=== PATIENT | female | born 1995 | race American Indian/Alaskan Native ===

== ENCOUNTER 2017-11-17 13:33 | Emergency (ER) | payer MEDICAID ==
[2017-11-17 14:20] VITALS: BP 146/95
[2017-11-17 16:25] LABS: Bilirubin,Urine NEG (Negative); Blood,Urine NEG (Negative); Color,Urine Yellow (Yellow); Mucus,Urine 3+ /HPF
[2017-11-17 16:27] LABS: HCG Qualitative,Urine Negative (Negative)
--- NOTE | 2017-11-17 18:50 | Emergency Department Report ---
ED Female HPI - General Chief complaint: Urogenital-Female Stated complaint: VAG BLEEDING Time Seen by Provider: 11/17/17 18:11 Source: patient Mode of arrival: Ambulatory Limitations: No Limitations - History of Present Illness Initial comments: This is a 22-year-old female nontoxic, well nourished in appearance, no acute signs of distress presents to the ED with c/o of vaginal discharge, vaginal bleeding, and pelvic cramping x2 days. Patient stated that symptoms of pelvic cramping and vaginal bleeding is similar to menstrual cycle. Patient stated she is breast feeding so she is "not supposed to get period". Patient stated she is concerned about STD. Patient denies any radiation of pain. Patient denies any vaginal ulcers or lesions. Patient denies any nausea, vomiting, chest pain, shortness of breathe, fever, chills, headache, back pain, numbness, tingling, stiff neck. Patient denies any urinary symptoms. Patient denies any allergies or PMH. MD Complaint: vaginal bleeding, vaginal discharge, pelvic pain -: days(s) (2) Radiation: non-radiating Severity: mild Severity scale (0 -10): 3 Quality: cramping Improves with: none Worsens with: none Are you Now?: No Associated Symptoms: vaginal discharge, vaginal bleeding, abdominal pain ( pelvic pain). denies: nausea/vomiting, fever/chills, headaches, loss of appetite, dysuria, hematuria, rash, seizure, shortness of breath, syncope, weakness - Related Data Allergies Allergy/AdvReac Type Severity Reaction Status Date / Time No Known Allergies Allergy Unverified 11/17/17 14:20 ED Review of Systems ROS: Stated complaint: VAG BLEEDING Other details as noted in HPI Constitutional: denies: chills, fever Eyes: denies: eye pain, eye discharge, vision change ENT: denies: ear pain, throat pain Respiratory: denies: cough, shortness of breath, wheezing Cardiovascular: denies: chest pain, palpitations Endocrine: no symptoms reported Gastrointestinal: abdominal pain. denies: nausea, vomiting, diarrhea Genitourinary: discharge, abnormal menses. denies: urgency, dysuria, frequency , hematuria Musculoskeletal: denies: back pain, joint swelling, arthralgia Skin: denies: rash, lesions Neurological: denies: headache, weakness, paresthesias Psychiatric: denies: anxiety, depression Hematological/Lymphatic: denies: easy bleeding, easy bruising ED Past Medical Hx - Past Medical History Previous Medical History?: No - Surgical History Past Surgical History?: No - Social History Smoking Status: Current Every Day Smoker Substance Use Type: None ED Physical Exam - General Limitations: No Limitations General appearance: alert, in no apparent distress - Head Head exam: Present: atraumatic, normocephalic - Eye Eye exam: Present: normal appearance, PERRL, EOMI Pupils: Present: normal accommodation - ENT ENT exam: Present: normal exam, mucous membranes moist - Neck Neck exam: Present: normal inspection, full ROM. Absent: tenderness, meningismus, lymphadenopathy - Respiratory Respiratory exam: Present: normal lung sounds bilaterally. Absent: respiratory distress, wheezes, rales, rhonchi, stridor, chest wall tenderness, accessory muscle use, decreased breath sounds, prolonged expiratory - Cardiovascular Cardiovascular Exam: Present: regular rate, normal rhythm, normal heart sounds. Absent: bradycardia, tachycardia, irregular rhythm, systolic murmur, diastolic murmur, rubs, gallop - GI/Abdominal GI/Abdominal exam: Present: soft, tenderness (pelvic region), normal bowel sounds. Absent: distended, guarding, rebound, rigid, diminished bowel sounds - Expanded GI/Abdominal Exam Expanded GI/Abdominal exam: Absent: psoas sign, obturator sign, heel tap sign, Thayer's sign, Rovsing's sign, tenderness at [place]bur[place]'s Point, ascites - Rectal Rectal exam: Present: deferred - External exam: Present: normal external exam, other (furnace attendant Patty oncology coordinator present during exam). Absent: erythema, swelling, lesions, lacerations, ecchymosis, bleeding Speculum exam: Present: normal speculum exam, cervical discharge, vaginal bleeding (slight), other (furnace attendant Patty oncology coordinator present during exam). Absent: erythema, vaginal discharge, foreign body, tissue, laceration Bi-manual exam: Present: normal bi-manual exam, other (furnace attendant Patty oncology coordinator present during exam). Absent: cervical motion tendernes, adnexal tenderness, adnexal mass, uterine enlargement, uterine tenderness - Extremities Exam Extremities exam: Present: normal inspection, full ROM, normal capillary refill - Back Exam Back exam: Present: normal inspection, full ROM. Absent: tenderness, CVA tenderness (R), CVA tenderness (L), muscle spasm, paraspinal tenderness, rash noted - Neurological Exam Neurological exam: Present: alert, oriented X3, normal gait - Psychiatric Psychiatric exam: Present: normal affect, normal mood - Skin Skin exam: Present: warm, dry, intact, normal color. Absent: rash ED Course Vital Signs 11/17/17 14:17 Temperature 98 F Pulse Rate 88 Respiratory 20 Rate Blood Pressure 146/95 O2 Sat by Pulse 100 Oximetry - Reevaluation(s) Reevaluation #1: 11/17/17 18:55 Patient is speaking in full sentences with no signs of distress noted. ED Medical Decision Making - Lab Data Result diagrams: 11/17/17 19:05 11/17/17 19:05 - Medical Decision Making This is a 22-year-old female that presents with possible STD. Patient is stable was examined by me. Labs within normal limits. US obtained and within normal limits. Patient is notified of the US report with no questions noted. UA obtained. Wet prep obtained. Gonorrhea chlamydia swab pending. Patient was instructed to return in 2 days for GC results. Patient wanted empirical treatment so patient received 1 g Rocephin and 1 g of azithromycin by mouth. Patient was instructed to Follow-up with a primary care doctor in 3-5 days or if symptoms worsen and continue return to emergency room as soon as possible. At time of discharge, the patient does not seem toxic or ill in appearance. No acute signs of distress noted. Patient agrees to discharge treatment plan of care. No further questions noted by the patient. Critical care attestation.: If time is entered above; I have spent that time in minutes in the direct care of this critically ill patient, excluding procedure time. ED Disposition Clinical Impression: Vaginal discharge, Vaginal bleeding, Possible exposure to STD Disposition: DC-01 TO HOME OR SELFCARE Is pt being admited?: No Does the pt Need Aspirin: No Condition: Stable Instructions: Safe Sex (ED) Additional Instructions: Follow-up with a primary care doctor in 3-5 days or if symptoms worsen and continue return to emergency room as soon as possible. Referrals: PRIMARY CARE, [Primary Care Provider] - 3-5 Days ABBY VERDE MD [Staff Physician] - 3-5 Days [facility] [Outside] - 3-5 Days [facility] [Outside] - 3-5 Days Forms: Work/School Release Form(ED)
[2017-11-17 19:19] LABS: Basophils # (Auto) 0.1 K/mm3 (0.0-0.1); Eosinophils # (Auto) 0.1 K/mm3 (0.0-0.4); Eosinophils % (Auto) 1.5 % (0.0-4.3); Hematocrit 36.7 % (30.3-42.9); Hemoglobin 11.7 gm/dl (10.1-14.3); Lymphocytes # (Auto) 2.6 K/mm3 (1.2-5.4); Lymphocytes % (Auto) 50.1 % (13.4-35.0); Mean Corpuscular HGB Conc 32 % (30-34); Mean Corpuscular Hemoglobin 27 pg (28-32); Mean Corpuscular Volume 83 fl (79-97); Monocytes # (Auto) 0.3 K/mm3 (0.0-0.8); Monocytes % (Auto) 6.4 % (0.0-7.3); Platelet Count 187 K/mm3 (140-440); Red Blood Count 4.43 M/mm3 (3.65-5.03); Red Cell Distribution Width 16.7 % (13.2-15.2)
[2017-11-17 19:31] LABS: BUN/Creatinine Ratio 18; Blood Urea Nitrogen 11 mg/dL (7-17); Calcium 9.3 mg/dL (8.4-10.2); Hemolysis Index 1
[2017-11-17] MEDS ORDERED: K-DUR PO ONE (20:06)
--- NOTE | 2017-11-17 20:59 | Ultrasound Report ---
FINAL REPORT EXAM: US PELVIC COMPLETE HISTORY: vaginal bleeding . LMP 11/09/2017. Negative beta HCG level TECHNIQUE: Ultrasound of the pelvis using transabdominal and transvaginal imaging PRIORS: None. FINDINGS: Uterus: Uterus is normal in size and normal and homogeneous in echogenicity without focal fibroid formation. The uterus measures 6.8 x 3.8 x 4.1 cm in size. Endometrial stripe: Normal and uniform in thickness measuring 6.9 mm. There is a small amount of fluid in the endometrial canal containing floating echogenic debris, likely due to blood products. Ovaries: Both ovaries appear normal in size and echogenicity with normal blood flow bilaterally. The right ovary measures 2.9 x 2.1 x 2.2 cm and the left ovary measures 1.9 x 1.5 x 2.9 cm in size. Other: There is no evidence for solid adnexal mass or free fluid in the cul-de-sac seen. IMPRESSION: Essentially negative pelvic ultrasound. Small amount of fluid containing echogenic debris is present in the endometrial canal, likely due to blood products. DOS
[2017-11-17] MEDS ORDERED: XYLOCAINE 1% MPF 5 mL INFILTRATI ONE (21:34)
[2017-11-17] MEDS ORDERED: ROCEPHIN IM ONE (21:34)
[2017-11-17] MEDS ORDERED: ZITHROMAX PO ONE (21:34)
== END 2017-11-17 22:19 | disposition home or self-care (01) ==
LOC: ED 13:33
DX: N89.8 Other specified noninflammatory disorders of vagina (principal); F17.200 Nicotine dependence, unspecified, uncomplicated
CPT/HCPCS: 36415; 76830; 76856; 80048; 81001; 81025; 85025; 87210; 87591; 96372; 99284; J0696

== ENCOUNTER 2018-10-25 16:17 | Emergency (ER) | payer MEDICAID, OTHER ==
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
[2018-10-25 18:03] LABS: Bilirubin,Urine NEG (Negative); Blood,Urine NEG (Negative); Color,Urine Yellow (Yellow); Protein,Urine <15 mg/dL mg/dL (Negative); Urobilinogen,Urine < 2.0 mg/dL (<2.0); WBC,Urine < 1.0 /HPF (0.0-6.0)
[2018-10-25 18:12] LABS: HCG Qualitative,Urine Negative (Negative)
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
--- NOTE | 2018-10-25 19:44 | Ultrasound Report ---
PROCEDURE: US TRANSVAGINAL HISTORY: pelvic pain FINDINGS: Real-time ultrasound of the pelvis was performed by transabdominal and endovaginal techniqu e. The uterus measures 8.7 x 3.8 x 4.1 cm. The endometrial stripe measures 1.2 cm which is within normal limits. The right ovary measures 3.1 x 2.0 x 2.8 cm and the left ovary 4.0 x 1.8 x 2.2 cm. There is no adnexa l mass or evidence of ovarian torsion. There is physiologic-simple appearing free fluid in the cul-de -sac. IMPRESSION: The uterus and ovaries appear within normal limits This document is electronically signed by Jossue Nguyen MD., Oct 25 2018 07:42:54 PM ET
--- NOTE | 2018-10-25 19:44 | Ultrasound Report ---
PROCEDURE: US PELVIC COMPLETE TECHNIQUE: HISTORY: pelvic pain COMPARISONS: FINDINGS: Real-time ultrasound of the pelvis was performed by transabdominal and endovaginal techniqu e. The uterus measures 8.7 x 3.8 x 4.1 cm. The endometrial stripe measures 1.2 cm which is within normal limits. The right ovary measures 3.1 x 2.0 x 2.8 cm and the left ovary 4.0 x 1.8 x 2.2 cm. There is no adnexa l mass or evidence of ovarian torsion. There is physiologic-simple appearing free fluid in the cul-de -sac. IMPRESSION: The uterus and ovaries appear within normal limits This document is electronically signed by Jossue Nguyen MD., Oct 25 2018 07:43:12 PM ET
[2018-10-25 20:38] VITALS: BP 123/81
== END 2018-10-25 20:38 | disposition home or self-care (01) ==
LOC: ED 16:17
DX: S39.013A Strain of muscle, fascia and tendon of pelvis, initial encounter (principal); S39.012A Strain of muscle, fascia and tendon of lower back, initial encounter; F17.200 Nicotine dependence, unspecified, uncomplicated; V89.2XXA Person injured in unspecified motor-vehicle accident, traffic, initial encounter; Y93.89 Activity, other specified; Y92.488 Other paved roadways as the place of occurrence of the external cause; Y99.8 Other external cause status
CPT/HCPCS: 76830; 76856; 81001; 81025; 99284

== ENCOUNTER 2018-12-13 11:36 | Emergency (ER) | payer MEDICAID ==
[2018-12-13 11:52] VITALS: BP 123/71
--- NOTE | 2018-12-13 11:52 | Event Note ---
ED Screening Note Date of service: 12/13/18 Time: 11:50 ED Screening Note: 23 y/o female comes in for allergies like symptoms for 2 days. No fever. Has not taken anything for it. This initial assessment/diagnostic orders/clinical plan/treatment(s) is/are subject to change based on patients health status, clinical progression and re- assessment by fellow clinical providers in the ED. Further treatment and workup at subsequent clinical providers discretion. Patient/guardian urged not to elope from the ED as their condition may be serious if not clinically assessed and managed. Initial orders include:
== END 2018-12-13 13:52 | disposition left against medical advice (07) ==
LOC: ED 11:36
DX: R05 Cough (principal); Z53.21 Procedure and treatment not carried out due to patient leaving prior to being seen by health care provider

== ENCOUNTER 2019-01-13 09:18 | Emergency (ER) | payer MEDICAID ==
[2019-01-13 09:39] VITALS: BP 112/62
[2019-01-13] MEDS ORDERED: REGLAN IV ONE (09:55)
[2019-01-13] MEDS ORDERED: NACL 0.9% 1000 ML 1,000 ML IV ONE (09:55)
--- NOTE | 2019-01-13 10:10 | Emergency Department Report ---
ED N/V/D HPI - General Chief complaint: Nausea/Vomiting/Diarrhea Stated complaint: /NAUSEA Time Seen by Provider: 01/13/19 09:54 Source: patient Mode of arrival: Ambulatory Limitations: No Limitations - History of Present Illness Initial comments: This is a 23-year-old female nontoxic, well nourished in appearance, no acute signs of distress presents to the ED with c/o of nausea and vomiting 2 days. Patient stated had a positive test 2 days ago. Denies any pelvic or abdominal. Deneis any vaginal bleeding. Patient describes vomiting as food content. Patient denies any abdominal pain, chest pain, short of breath, fever, chills, headache, stiff neck, numbness or tingling. Patient denies any diarrhea or constipation. Patient denies any recent travels. Patient denies any drug allergies significant past medical history. MD complaint: nausea, vomiting -: days(s) (2) Description of Vomiting: food contents Associated Abdominal Pain: No Radiation: none Pain Scale: 0 Consistency: constant Improves with: none Worsens with: none Associated Symptoms: denies other symptoms. denies: myalgias, chest pain, cough, diaphoresis, fever/chills, headaches, loss of appetite, malaise, nausea/vomiting, rash, dysuria, shortness of breath, syncope, weakness - Related Data Previous Rx's Medication Instructions Recorded Last Taken Type Naproxen [Naprosyn] 500 mg PO TID PRN #20 tablet 10/25/18 Unknown Rx methOCARBAMOL [Robaxin TAB] 500 mg PO BID PRN #15 tab 10/25/18 Unknown Rx Allergies Allergy/AdvReac Type Severity Reaction Status Date / Time No Known Allergies Allergy Unverified 11/17/17 14:20 ED Review of Systems ROS: Stated complaint: /NAUSEA Other details as noted in HPI Constitutional: denies: chills, fever Eyes: denies: eye pain, eye discharge, vision change ENT: denies: ear pain, throat pain Respiratory: denies: cough, shortness of breath, wheezing Cardiovascular: denies: chest pain, palpitations Endocrine: no symptoms reported Gastrointestinal: nausea, vomiting. denies: abdominal pain, diarrhea, constipation Genitourinary: denies: urgency, dysuria, discharge Musculoskeletal: denies: back pain, joint swelling, arthralgia Skin: denies: rash, lesions Neurological: denies: headache, weakness, paresthesias Psychiatric: denies: anxiety, depression Hematological/Lymphatic: denies: easy bleeding, easy bruising ED Past Medical Hx - Past Medical History Previous Medical History?: No - Surgical History Past Surgical History?: No - Social History Smoking Status: Current Every Day Smoker Substance Use Type: None - Medications Home Medications: Home Medications Medication Instructions Recorded Confirmed Last Taken Type Naproxen [Naprosyn] 500 mg PO TID PRN #20 tablet 10/25/18 Unknown Rx methOCARBAMOL [Robaxin TAB] 500 mg PO BID PRN #15 tab 10/25/18 Unknown Rx ED Physical Exam - General Limitations: No Limitations General appearance: alert, in no apparent distress - Head Head exam: Present: atraumatic, normocephalic - GI/Abdominal GI/Abdominal exam: Present: soft, normal bowel sounds. Absent: distended, tenderness, guarding, rebound, rigid, diminished bowel sounds - Extremities Exam Extremities exam: Present: normal inspection, full ROM - Back Exam Back exam: Present: normal inspection, full ROM. Absent: tenderness, CVA tenderness (R), CVA tenderness (L), muscle spasm, paraspinal tenderness, vertebral tenderness, rash noted - Neurological Exam Neurological exam: Present: alert, oriented X3, normal gait - Psychiatric Psychiatric exam: Present: normal affect, normal mood - Skin Skin exam: Present: warm, dry, intact, normal color. Absent: rash ED Course Vital Signs 01/13/19 01/13/19 09:38 09:55 Temperature 98.5 F Pulse Rate 79 Respiratory 18 15 Rate Blood Pressure 112/62 [Right] - Reevaluation(s) Reevaluation #1: 01/13/19 10:09 Patient is speaking in full sentences with no signs of distress noted. ED Medical Decision Making - Lab Data Result diagrams: 01/13/19 10:06 - Medical Decision Making This is a 23-year-old female that presents with nausea and vomiting during her . Patient is stable and was examined by me. There is no abdominal tenderness. Labs obtained. Vital signs are stable. IV medication treatment has been ordered. RN told me that patient has walked out without saying anything. I tried to call the patient back 2 times with no response. Patient left AGAINST MEDICAL ADVICE without letting anybody know. I was not able to reevaluate the patient after treatment. Critical care attestation.: If time is entered above; I have spent that time in minutes in the direct care of this critically ill patient, excluding procedure time. ED Disposition Clinical Impression: Nausea and vomiting during Disposition: DC-07 LEFT AGAINST MED ADVICE Is pt being admited?: No Condition: Undetermined
[2019-01-13 10:22] LABS: Basophils % (Auto) 0.7 % (0.0-1.8); Eosinophils # (Auto) 0.1 K/mm3 (0.0-0.4); Eosinophils % (Auto) 1.4 % (0.0-4.3); Hematocrit 35.8 % (30.3-42.9); Hemoglobin 11.8 gm/dl (10.1-14.3); Lymphocytes # (Auto) 1.7 K/mm3 (1.2-5.4); Lymphocytes % (Auto) 39.9 % (13.4-35.0); Mean Corpuscular HGB Conc 33 % (30-34); Mean Corpuscular Volume 86 fl (79-97); Monocytes # (Auto) 0.4 K/mm3 (0.0-0.8); Monocytes % (Auto) 9.4 % (0.0-7.3); Platelet Count 150 K/mm3 (140-440); Red Blood Count 4.17 M/mm3 (3.65-5.03); Red Cell Distribution Width 15.1 % (13.2-15.2)
== END 2019-01-13 10:40 | disposition left against medical advice (07) ==
LOC: ED 09:18
DX: O21.8 Other vomiting complicating pregnancy (principal); O99.331 Smoking (tobacco) complicating pregnancy, first trimester; F17.200 Nicotine dependence, unspecified, uncomplicated; Z3A.00 Weeks of gestation of pregnancy not specified; Z79.899 Other long term (current) drug therapy
CPT/HCPCS: 36415; 84702; 85025; 96361; 96374; 99283; J2765; J7030

== ENCOUNTER 2019-03-06 13:31 | Emergency (ER) | payer MEDICAID ==
[2019-03-06 14:33] VITALS: BP 113/78
--- NOTE | 2019-03-06 14:38 | Event Note ---
ED Screening Note Date of service: 03/05/19 Time: 14:35 ED Screening Note: reports vaginal discharge. Francis brownish color and just coming off cycle. Wants to make that she does. Unsafe sex. recent Recent 01/19/2013. Concern for UTI and STD This initial assessment/diagnostic orders/clinical plan/treatment(s) is/are subject to change based on patients health status, clinical progression and re- assessment by fellow clinical providers in the ED. Further treatment and workup at subsequent clinical providers discretion. Patient/guardian urged not to elope from the ED as their condition may be serious if not clinically assessed and managed. Initial orders include:
[2019-03-06 16:13] LABS: Bilirubin,Urine NEG (Negative); Blood,Urine NEG (Negative); Color,Urine Yellow (Yellow); Mucus,Urine FEW /HPF; Protein,Urine <15 mg/dL mg/dL (Negative); Urobilinogen,Urine < 2.0 mg/dL (<2.0); WBC,Urine < 1.0 /HPF (0.0-6.0)
[2019-03-06 16:14] LABS: HCG Qualitative,Urine Negative (Negative)
[2019-03-06] MEDS ORDERED: FLUCONAZOLE 150 MG TAB PO ONE (17:08)
[2019-03-06] MEDS ORDERED: LIDOCAINE-MPF (1%) 10 MG/1 ML VIAL 5 ML INFILTRATI ONE (17:09)
[2019-03-06] MEDS ORDERED: ONDANSETRON 4 MG ODT TAB PO ONE (17:10)
[2019-03-06] MEDS ORDERED: AZITHROMYCIN 1 GM ORAL PWDR PACKET PO ONE (17:10)
[2019-03-06] MEDS ORDERED: metroNIDAZOLE 500 MG TAB PO ONE (17:10)
--- NOTE | 2019-03-06 17:37 | Emergency Department Report ---
ED General Adult HPI - General Chief complaint: Urogenital-Female Stated complaint: DISCHARGE/NAUSEA Time Seen by Provider: 03/06/19 14:26 Source: patient Mode of arrival: Ambulatory Limitations: No Limitations - History of Present Illness Initial comments: Patient is a 23-year-old female who presents with vaginal discharge for last 3 weeks she states that the discharge is white patient denies having any pain. She states that she had an on temp her second 2019 has not had any follow-up since then. 10 symptoms are moderate nothing makes them better and nothing makes them worse. Patient is sexually active patient denies having any dysuria. - Related Data Previous Rx's Medication Instructions Recorded Last Taken Type Naproxen [Naprosyn] 500 mg PO TID PRN #20 tablet 10/25/18 Unknown Rx methOCARBAMOL [Robaxin TAB] 500 mg PO BID PRN #15 tab 10/25/18 Unknown Rx Allergies Allergy/AdvReac Type Severity Reaction Status Date / Time No Known Allergies Allergy Unverified 11/17/17 14:20 ED Review of Systems ROS: Stated complaint: DISCHARGE/NAUSEA Other details as noted in HPI Constitutional: denies: chills, fever Eyes: denies: eye pain, eye discharge, vision change ENT: denies: ear pain, throat pain Respiratory: denies: cough, shortness of breath, wheezing Cardiovascular: denies: chest pain, palpitations Endocrine: no symptoms reported Gastrointestinal: denies: abdominal pain, nausea, diarrhea Genitourinary: denies: urgency, dysuria, discharge Musculoskeletal: denies: back pain, joint swelling, arthralgia Skin: denies: rash, lesions Neurological: denies: headache, weakness, paresthesias Psychiatric: denies: anxiety, depression Hematological/Lymphatic: denies: easy bleeding, easy bruising ED Past Medical Hx - Social History Smoking Status: Current Every Day Smoker Substance Use Type: None - Medications Home Medications: Home Medications Medication Instructions Recorded Confirmed Last Taken Type Naproxen [Naprosyn] 500 mg PO TID PRN #20 tablet 10/25/18 Unknown Rx methOCARBAMOL [Robaxin TAB] 500 mg PO BID PRN #15 tab 10/25/18 Unknown Rx ED Physical Exam - General Limitations: No Limitations General appearance: alert, in no apparent distress - Head Head exam: Present: atraumatic, normocephalic - Eye Eye exam: Present: normal appearance - ENT ENT exam: Present: mucous membranes moist - Neck Neck exam: Present: normal inspection - Respiratory Respiratory exam: Present: normal lung sounds bilaterally. Absent: respiratory distress - Cardiovascular Cardiovascular Exam: Present: regular rate, normal rhythm. Absent: systolic murmur, diastolic murmur, rubs, gallop - GI/Abdominal GI/Abdominal exam: Present: soft, normal bowel sounds - External exam: Present: normal external exam Speculum exam: Present: vaginal discharge, cervical discharge, other (erythematous cervix ) - Extremities Exam Extremities exam: Present: normal inspection - Back Exam Back exam: Present: normal inspection - Neurological Exam Neurological exam: Present: alert, oriented X3 - Psychiatric Psychiatric exam: Present: normal affect, normal mood - Skin Skin exam: Present: warm, dry, intact, normal color. Absent: rash ED Course Vital Signs 03/06/19 14:32 Temperature 98.2 F Pulse Rate 80 Respiratory 18 Rate Blood Pressure 113/78 [Left] O2 Sat by Pulse 98 Oximetry ED Medical Decision Making - Medical Decision Making Chief medical diagnosis: Cervicitis Differential medical diagnosis: PID, UTI, A urine analysis urine old a public and I'll give patient empiric antibiotics. Critical care attestation.: If time is entered above; I have spent that time in minutes in the direct care of this critically ill patient, excluding procedure time. ED Disposition Clinical Impression: Cervicitis, Vaginal discharge Disposition: DC-01 TO HOME OR SELFCARE Is pt being admited?: No Does the pt Need Aspirin: No Condition: Stable Instructions: Cervicitis (ED) Referrals: PRIMARY CARE, [Primary Care Provider] - 3-5 Days Forms: STI Treatment and Prevention
== END 2019-03-06 18:25 | disposition home or self-care (01) ==
LOC: ED 13:31
DX: N72 Inflammatory disease of cervix uteri (principal); F17.200 Nicotine dependence, unspecified, uncomplicated
CPT/HCPCS: 81001; 81025; 96372; 99283; J0696; Q0162

== ENCOUNTER 2022-01-11 14:21 | Emergency (ER) | payer MEDICAID ==
[2022-01-11 15:30] VITALS: BP 120/74
== END 2022-01-13 11:20 | disposition left against medical advice (07) ==
LOC: ED 14:21
DX: R11.0 Nausea (principal); Z53.21 Procedure and treatment not carried out due to patient leaving prior to being seen by health care provider; R42 Dizziness and giddiness